=== PATIENT | male | born 1980 | race Caucasian/White ===

== ENCOUNTER 2016-11-27 14:11 | Inpatient (IN) | payer OTHER ==
--- NOTE | 2016-11-27 17:08 | Emergency Department Report ---
ED Extremity Problem HPI - General Chief complaint: Extremity Injury, Lower Stated complaint: THIGH PAIN Time Seen by Provider: 11/27/16 16:40 Source: patient Mode of arrival: Ambulatory Limitations: No Limitations - History of Present Illness Initial comments: Patient comes into the ER today with complaints of right thigh pain and swelling for the past 3 days. Patient denies any injury. 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 Patient states that he has had this before in his left arm and was told that he pulled a muscle. Patient denies any chest pain, shortness of breath or any other known health factors. Upon questioning patient, does state that he has had a blood clot in his left leg 2 years ago and was on Xeralto for such. Patient has not been taken Xeralto for a while. MD Complaint: extremity pain, extremity swelling -: days(s) (3) Location: right, lower extremity - Related Data Allergies Allergy/AdvReac Type Severity Reaction Status Date / Time No Known Allergies Allergy Unverified 11/27/16 14:20 ED Review of Systems ROS: Stated complaint: THIGH PAIN Other details as noted in HPI Constitutional: denies: chills, fever Eyes: denies: eye pain, eye discharge, vision change ENT: denies: ear pain, throat pain Respiratory: denies: cough, orthopnea, shortness of breath, SOB with exertion, SOB at rest, wheezing Cardiovascular: denies: chest pain, palpitations Endocrine: no symptoms reported Gastrointestinal: denies: abdominal pain, nausea, diarrhea Genitourinary: denies: urgency, dysuria, frequency, hematuria, discharge, testicular pain Musculoskeletal: myalgia, other (right thigh pain). denies: back pain, joint swelling, arthralgia Skin: denies: rash, lesions Neurological: denies: headache, weakness, numbness, paresthesias Psychiatric: denies: anxiety, depression Hematological/Lymphatic: denies: easy bleeding, easy bruising ED Past Medical Hx - Past Medical History Previous Medical History?: No - Surgical History Past Surgical History?: No - Social History Smoking Status: Never Smoker Substance Use Type: None ED Physical Exam - General Limitations: No Limitations General appearance: alert, in no apparent distress - Head Head exam: Present: atraumatic, normocephalic - Eye Eye exam: Present: normal appearance - ENT ENT exam: Present: mucous membranes moist - Neck Neck exam: Present: normal inspection, full ROM. Absent: tenderness, lymphadenopathy - Respiratory Respiratory exam: Present: normal lung sounds bilaterally. Absent: respiratory distress, wheezes, rales, rhonchi, decreased breath sounds - Cardiovascular Cardiovascular Exam: Present: regular rate, normal rhythm. Absent: systolic murmur, diastolic murmur, rubs, gallop - GI/Abdominal GI/Abdominal exam: Present: soft, normal bowel sounds. Absent: distended, tenderness, guarding, rebound - Rectal Rectal exam: Present: deferred - Extremities Exam Extremities exam: Present: tenderness (right medial anterior thigh tenderness, pain with occasional varicose vein noted. Right calf tenderness.), normal capillary refill, calf tenderness. Absent: pedal edema - Back Exam Back exam: Present: normal inspection - Neurological Exam Neurological exam: Present: alert, oriented X3, CN II-XII intact, reflexes normal. Absent: motor sensory deficit - Psychiatric Psychiatric exam: Present: normal affect, normal mood - Skin Skin exam: Present: warm, dry, intact, normal color. Absent: rash ED Course Vital Signs 11/27/16 11/27/16 14:18 18:43 Temperature 98.2 F Pulse Rate 90 Respiratory 18 16 Rate Blood Pressure 129/76 O2 Sat by Pulse 98 99 Oximetry ED Medical Decision Making - Lab Data Result diagrams: 11/27/16 18:01 11/27/16 18:01 Lab Results 11/27/16 11/27/16 11/27/16 Range/Units 18:01 18:01 18:01 WBC 5.0 (4.5-11.0) K/mm3 RBC 4.67 (3.65-5.03) M/mm3 Hgb 13.4 (11.8-15.2) gm/dl Hct 40.0 (35.5-45.6) % MCV 86 (84-94) fl MCH 29 (28-32) pg MCHC 34 (32-34) % RDW 13.5 (13.2-15.2) % Plt Count 165 (140-440) K/mm3 Lymph % (Auto) 38.6 H (13.4-35.0) % [place] % (Auto) 8.1 H (0.0-7.3) % Eos % (Auto) 6.6 H (0.0-4.3) % Baso % (Auto) 1.3 (0.0-1.8) % Lymph # 1.9 (1.2-5.4) K/mm3 [place] # 0.4 (0.0-0.8) K/mm3 Eos # 0.3 (0.0-0.4) K/mm3 Baso # 0.1 (0.0-0.1) K/mm3 Seg Neutrophils % 45.4 (40.0-70.0) % Seg Neutrophils # 2.3 (1.8-7.7) K/mm3 PT 14.2 (12.2-14.9) Sec. INR 1.11 (0.87-1.13) APTT 25.7 (24.2-36.6) Sec. Sodium 140 (137-145) mmol/L Potassium 4.0 (3.6-5.0) mmol/L Chloride 101.6 (98-107) mmol/L Carbon Dioxide 26 (22-30) mmol/L Anion Gap 16 mmol/L BUN 16 (9-20) mg/dL Creatinine 1.1 (0.8-1.5) mg/dL Estimated GFR > 60 ml/min BUN/Creatinine Ratio 14.54 % Glucose 105 H (75-100) mg/dL Calcium 9.4 (8.4-10.2) mg/dL Total Bilirubin 0.50 (0.1-1.2) mg/dL AST 21 (5-40) units/L ALT 28 (7-56) units/L Alkaline Phosphatase 88 (35-129) units/L Total Protein 8.3 H (6.3-8.2) g/dL Albumin 4.4 (3.9-5) g/dL Albumin/Globulin Ratio 1.1 % - EKG Data -: EKG Interpreted by Tx EKG shows normal: sinus rhythm Rate: normal - EKG Data Interpretation: no acute changes, normal EKG - Radiology Data Radiology results: report reviewed Chest x-ray report is negative. Verbal report from sterilization tech reveals bilateral lower extremity DVTs. - Medical Decision Making Patient is nontoxic and hemodynamically stable. Based on history and lack of injury, lower extremity venous Doppler ordered in the ER. Verbal interpretation from sterilization tech reveals bilateral lower extremity DVT. Ultrasound results reviewed and discussed with patient room. Based on patient having bilateral lower extremity DVT, recommend patient be admitted to hospital for observation. Additional lab testing ordered as well as EKG and chest x- ray. Discussed case and treatment plan with attending Dr. Kahlil M.D. also consulted hospitalist Dr. Sona MD. for admission. Upon further inquiry of patient's history, patient does state that other family members have had similar problems with blood clots in the past as well. I have suspicion for some underlying blood clotting disorder as to patient's recurrent DVT situation. Critical care attestation.: If time is entered above; I have spent that time in minutes in the direct care of this critically ill patient, excluding procedure time. ED Disposition Clinical Impression: DVT, bilateral lower limbs Disposition: OP ADMITTED IP TO THIS HOSP Is pt being admited?: Yes Does the pt Need Aspirin: No Condition: Stable
--- NOTE | 2016-11-27 18:05 | Admit Criteria Form ---
Admission Criteria Documentation: DEEP VENOUS THROMBOSIS OF LOWER EXTREMITIES Clinical Indications for Admission to Inpatient Care ( Place 'X' for any and all applicable criteria): Admission is indicated for ANY ONE of the following (1)(2)(3)(4): [ ]I. Documented extensive thrombosis (e.g., clot in vena cava or above iliofemoral bifurcation) [ ]II. Limb-threatening thrombosis (e.g., phlegmasia cerulea dolens) [ ]III. Active bleeding [ ]IV. Recent surgery (e.g., within 6 weeks) [ ]V. Active peptic ulcer disease [ ]. Thrombosis while on anticoagulation [ ]VII. [X ]VIII. Appropriate monitoring and therapy cannot be provided in home or outpatient setting [ ]IX. Thrombolysis (e.g., catheter-directed) or pharmaco mechanical thrombectomy needed (3) [ ]X. Vena cava filter placement planned (3) [ ]XI. Severely diminished cardiopulmonary reserve (e.g., pulmonary hypertension) [ ]XII. Severe renal failure (e.g., GFR less than 30 mL/min/1.73m2 (0.5 mL/sec /1.73m2)) [ ]XIII. Known clotting abnormality or deficiency (antithrombin III, protein C , or protein S) [ ]XIV. History of heparin-induced thrombocytopenia [ ]XV . Personal or family history of bleeding tendency or familial bleeding disorder that requires inpatient admission rather than observation care (Also use Deep Venous Thrombosis of Lower Extremities: Observation Care as appropriate) because of ANY ONE of the following: [ ]a) Significant allergic, autoimmune (thrombocytopenia), or coagulopathic reaction occurs in response to anticoagulation [ ]b) Other significant finding or clinical condition judged not to be within the scope of observation care Extended stay beyond goal length of stay may be needed for(1)(19): [ ]a) Hemorrhage or recent surgery(3) [ ]b) Inadequate oral anticoagulation [ ]c) Recurrent thromboembolism(3) [ ]d) Heparin-induced thrombocytopenia(14) The original [facility] content created by [facility] has been revised. The portions of the content which have been revised are identified through the use of italic text or in bold, and [facility] has neither reviewed nor approved the modified material. All other unmodified content is copyright [facility]. Please see references footnoted in the original [facility] edition 2016 Admission Criteria Met: Yes
[2016-11-27 18:09] LABS: Basophils % (Auto) 1.3 % (0.0-1.8); Eosinophils % (Auto) 6.6 % (0.0-4.3); Hemoglobin 13.4 gm/dl (11.8-15.2); Mean Corpuscular HGB Conc 34 % (32-34); Mean Corpuscular Hemoglobin 29 pg (28-32); Mean Corpuscular Volume 86 fl (84-94); Platelet Count 165 K/mm3 (140-440); Red Blood Count 4.67 M/mm3 (3.65-5.03); Red Cell Distribution Width 13.5 % (13.2-15.2)
[2016-11-27] MEDS ORDERED: LOVENOX SUB-Q ONE (18:10)
[2016-11-27] MEDS ORDERED: NACL 0.9% 1000 ML 1,000 ML IV ONE (18:10)
[2016-11-27 18:22] LABS: INR 1.11 (0.87-1.13)
[2016-11-27 18:23] LABS: Partial Thromboplastin Time 25.7 Sec. (24.2-36.6)
[2016-11-27 18:33] LABS: Alanine Aminotransferase 28 units/L (7-56); Albumin 4.4 g/dL (3.9-5); Albumin/Globulin Ratio 1.1 %; Alkaline Phosphatase 88 units/L (35-129); Anion Gap 16 mmol/L; BUN/Creatinine Ratio 14.54; Blood Urea Nitrogen 16 mg/dL (9-20); Calcium 9.4 mg/dL (8.4-10.2); Carbon Dioxide 26 mmol/L (22-30); Chloride 101.6 mmol/L (98-107); Glucose 105 mg/dL (75-100); Sodium 140 mmol/L (137-145); Total Protein 8.3 g/dL (6.3-8.2)
--- NOTE | 2016-11-27 18:41 | XRay Report ---
FINAL REPORT PROCEDURE: XR CHEST 1V AP TECHNIQUE: Chest radiograph anteroposterior view. CPT 48459 HISTORY: Dyspnea COMPARISON: No prior studies are available for comparison. FINDINGS: Heart: Normal. Mediastinum/Vessels: Normal. Lungs/Pleural space: Normal. Bony thorax: No acute osseous abnormality. Life support devices: None. IMPRESSION: No acute cardiopulmonary abnormality.
[2016-11-27] MEDS ORDERED: FLUARIX QUAD 2016-2017(36 MOS+) IM ONE (23:10)
[2016-11-28] MEDS ORDERED: MORPHINE IV PRN (00:54)
[2016-11-28] MEDS ORDERED: PERCOCET 5/325 PO PRN (03:33)
[2016-11-28] MEDS ORDERED: DILAUDID IV PRN (03:33)
[2016-11-28] MEDS ORDERED: ZOFRAN IV PRN (03:33)
[2016-11-28] MEDS ORDERED: TYLENOL PO PRN (03:33)
[2016-11-28] MEDS ORDERED: DULCOLAX PR PRN (03:33)
[2016-11-28] MEDS ORDERED: MILK OF MAGNESIA PO PRN (03:33)
--- NOTE | 2016-11-28 03:36 | Event Note ---
Date: 11/27/16 See H/p in reports Sukhjinder DVT Lovenox +Xarelto ordered Patient wants to be on Xarelto and not coumdin b/c of convenience R/o Hypercoagulable state
[2016-11-28] MEDS: LOVENOX SUB-Q SCH ×2 (06:39→16:19)
--- NOTE | 2016-11-28 07:13 | History and Physical Report ---
CHIEF COMPLAINT: Right thigh pain and swelling for 3 days. HISTORY OF PRESENT ILLNESS: A 36-year-old male comes in to the ER for right lower extremity swelling for the last 3 days. There is significant difference in size from the right upper thigh and left upper thigh. There is no shortness of breath. 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 The patient had a similar problem of DVT 2 years ago and 6 years ago. It is the third episode. He had a blood clot in the left leg 2 years ago. Not taking any medications. Taken some [id number]-lfw-cquzkmb medications. PAST MEDICAL HISTORY: Significant for recurrent DVT. This is a third episode. PAST SURGICAL HISTORY: None. SOCIAL HISTORY: Does not smoke. No alcohol, no recreational drugs. FAMILY HISTORY: Hypertension present. REVIEW OF SYSTEMS: Significant for right lower extremity swelling and pain, which is about 6 on a scale of 1-10. No shortness of breath. A 14-point review of systems was done. Otherwise, negative. PHYSICAL EXAMINATION: GENERAL: Young male, cooperative during examination. VITAL SIGNS: Temperature 98.2, pulse 90, respirations 18, blood pressure 129/76, sats are 98%. HEENT: Unremarkable. Pupils equal and reactive. NECK: Supple, no lymphadenopathy, no thyromegaly. LUNGS: Clear to auscultation and percussion. Good air entry. CARDIOVASCULAR: S1, S2 heard. No gallop, no murmur, no rub. Apical impulse in left fifth intercostal space and midclavicular line. ABDOMEN: Soft and benign. No hepatosplenomegaly. No guarding, no rigidity. Hernial orifices are normal. EXTREMITIES: Good pedal pulses. No pedal edema. Right lower extremity is swollen, mid thigh is 3 cm more than the left mid thigh. Right upper thigh is hard to touch. SKIN: Normal. LABORATORY DATA: Essentially normal. Glucose is 105 and total protein is 8.3. IMAGING: The patient has had ultrasound of both the lower extremities, which shows bilateral DVT. Acute DVT noted in bilateral common femoral vein and the superficial femoral vein and popliteal veins. also noted in right brachiocephalic vein. ASSESSMENT AND PLAN: Bilateral deep venous thrombosis, more so in the right lower extremity. The patient started on Lovenox 100 mg q.12h and Xarelto 20 mg once a day. The patient wants to be on Xarelto and not Coumadin because of the convenience. The patient does not want blood test every month. We will discuss with the incoming hospitalist group about the Coumadin versus Xarelto. Also, the patient may be switched to heparin because of the cross reaction of Lovenox with Xarelto, but it was recurrent hypercoagulable state. We will check for protein C, protein S, homocystine levels as basic workup for hypercoagulable state. Deep venous thrombosis prophylaxis. The patient is already on Lovenox 100 mg q.12h. JOB# [id number] JOSE D/SUGAR
--- NOTE | 2016-11-28 08:34 | Progress Note ---
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 Patient most likely will be on anticoagulation indefinitely. He's asking for Flexeril for muscle spasms of the right leg. -History of DVT -Disposition: Depending on Hemo/onc evaluation; patient may be discharged tomorrow on a novel anticoagulation Hypercoagulable panel was ordered and needs follow-up with hematology oncology History Interval history: Patient seen and examined. Follow up on right leg and thigh pains which is still present. Overnight uneventful. No cp, sob, n/v or severe headaches. Imaging, old records, testing, labs, nursing notes reviewed. Hospitalist Physical - Physical exam Narrative exam: GEN: WDWN, NAD, AWAKE, ALERT, ORIENTATED x 3 HEENT: NCAT, PERRL, EOMI, OP CLEAR NECK: SUPPLE, NO THYROMEGALY, NO JVD, NO LAD CVS: RRR, NORMAL S1S2 LUNGS/CHEST: CTA B, NORMAL CHEST EXPANSION B, GOOD AIR ENTRY B ABD: SOFT, NTND, GBS, NO REBOUND OR GUARDING EXT/SKIN: Right leg is slightly bigger than left MSK: FROM X 4 EXTREMITIES NEURO: CN 2-12 GROSSLY INTACT, NO FOCAL DEFICITS PSY: CALM - Constitutional Vitals: Temp Pulse Resp BP Pulse Ox 98.2 F 72 20 132/86 99 11/28/16 07:00 11/28/16 07:00 11/28/16 07:00 11/28/16 07:00 11/28/16 07:00 Results - Labs CBC & Chem 7: 11/27/16 18:01 11/27/16 18:01 Labs: Laboratory Last Values WBC 5.0 K/mm3 (4.5-11.0) 11/27/16 18:01 RBC 4.67 M/mm3 (3.65-5.03) 11/27/16 18:01 Hgb 13.4 gm/dl (11.8-15.2) 11/27/16 18:01 Hct 40.0 % (35.5-45.6) 11/27/16 18:01 MCV 86 fl (84-94) 11/27/16 18:01 MCH 29 pg (28-32) 11/27/16 18:01 MCHC 34 % (32-34) 11/27/16 18:01 RDW 13.5 % (13.2-15.2) 11/27/16 18:01 Plt Count 165 K/mm3 (140-440) 11/27/16 18:01 Lymph % (Auto) 38.6 % (13.4-35.0) H 11/27/16 18:01 [place] % (Auto) 8.1 % (0.0-7.3) H 11/27/16 18:01 Eos % (Auto) 6.6 % (0.0-4.3) H 11/27/16 18:01 Baso % (Auto) 1.3 % (0.0-1.8) 11/27/16 18:01 Lymph # 1.9 K/mm3 (1.2-5.4) 11/27/16 18:01 [place] # 0.4 K/mm3 (0.0-0.8) 11/27/16 18:01 Eos # 0.3 K/mm3 (0.0-0.4) 11/27/16 18:01 Baso # 0.1 K/mm3 (0.0-0.1) 11/27/16 18:01 Seg Neutrophils % 45.4 % (40.0-70.0) 11/27/16 18:01 Seg Neutrophils # 2.3 K/mm3 (1.8-7.7) 11/27/16 18:01 PT 14.2 Sec. (12.2-14.9) 11/27/16 18:01 INR 1.11 (0.87-1.13) 11/27/16 18:01 APTT 25.7 Sec. (24.2-36.6) 11/27/16 18:01 Sodium 140 mmol/L (137-145) 11/27/16 18:01 Potassium 4.0 mmol/L (3.6-5.0) 11/27/16 18:01 Chloride 101.6 mmol/L (98-107) 11/27/16 18:01 Carbon Dioxide 26 mmol/L (22-30) 11/27/16 18:01 Anion Gap 16 mmol/L 11/27/16 18:01 BUN 16 mg/dL (9-20) 11/27/16 18:01 Creatinine 1.1 mg/dL (0.8-1.5) 11/27/16 18:01 Estimated GFR > 60 ml/min 11/27/16 18:01 BUN/Creatinine Ratio 14.54 % 11/27/16 18:01 Glucose 105 mg/dL (75-100) H 11/27/16 18:01 Calcium 9.4 mg/dL (8.4-10.2) 11/27/16 18:01 Total Bilirubin 0.50 mg/dL (0.1-1.2) 11/27/16 18:01 AST 21 units/L (5-40) 11/27/16 18:01 ALT 28 units/L (7-56) 11/27/16 18:01 Alkaline Phosphatase 88 units/L (35-129) 11/27/16 18:01 Total Protein 8.3 g/dL (6.3-8.2) H 11/27/16 18:01 Albumin 4.4 g/dL (3.9-5) 11/27/16 18:01 Albumin/Globulin Ratio 1.1 % 11/27/16 18:01
[2016-11-28] MEDS: FLEXERIL PO PRN ×2 (09:56→17:12)
[2016-11-28] MEDS ORDERED: XARELTO PO SCH (10:00)
[2016-11-28] MEDS ORDERED: FLUARIX QUAD 2016-2017(36 MOS+) IM ONE (12:00)
--- NOTE | 2016-11-28 16:36 | Hem/Onc Progress Note ---
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 He reports a hx of multiple DVT's being treated with both Coumadin and Xarelto in the past. States he has not been on any anticoagulation recently, last time one year ago. Confused regarding details of previous diagnosis and treatment. He thinks the blood clot is due to prolonged driving for his job. Does not smoke. Reports a history of blood clots in his father. Information obtained over the phone. States he prefers Coumadin to Xarelto due to prior bleeding on Xarelto. - agree with current lovenox, will likely need indefinite anticoagulation - agree with hypercoagulable w/u - full evaluation to follow tomorrow morning - will need follow up in hematology clinic Subjective Date of service: 11/28/16 Interval history: . Objective - Constitutional Vitals: Last Vital Signs Temp 98.2 F 11/28/16 07:00 Pulse 72 11/28/16 07:00 Resp 20 11/28/16 07:00 BP 132/86 11/28/16 07:00 Pulse Ox 99 11/28/16 07:00
[2016-11-28] MEDS ORDERED: COUMADIN PO SCH (17:00)
[2016-11-29] MEDS: LOVENOX SUB-Q SCH (04:32)
[2016-11-29] MEDS: FLEXERIL PO PRN (05:22)
--- NOTE | 2016-11-29 07:24 | Discharge Summary ---
Providers - Providers Date of Admission: 11/27/16 18:15 Date of discharge: 11/29/16 Attending physician: SHORTY TARANGO MD 11/28/16 06:46 Consult to Physician [CONS] Routine Consulting Provider: TIGIST BAER Reason For Exam: Why 36 yo with leg DVTs? treatment? Place consult to:: Michelle LOCKHART Notified:: [employer] Phone number called:: [phone] Was contact made?: Yes Time called:: 08:10 Comment:: CONSULT COMPLETED - CHAITANYA Primary care physician: HEMATOLOGIST Hospitalization Reason for admission: right knee pain Condition: Stable Hospital course: Patient is a 36-year-old male who works with hx of 2 vessels of left sided DVTs , presents to the hospital complaining of right leg pain and was diagnosed with extensive bilateral DVT. The patient was started on Lanoxin with warfarin. Initially the patient had stated that he was on Xarelto but on further evaluation and discussion he had actually used Xarelto in the past but it was discontinued due to gum bleeding. This was years ago. He was in by hematology oncology and left thigh specimen discussion the patient wants to return to uses her altered. He understands that he most likely will be on confabulation indefinitely and is to follow up with a home economics expert office for hyperbilirubinemia workup. We did discuss side effects associated with the medication and also anticoagulants including bleeding. He is also Flexeril when necessary. He also understands not to drive while on this medication. This has been discussed in detail the patient is clinically stable at this point for discharge. Discharge diagnosis * Bilateral DVT * Secondary coagulopathy * Muscle spasm Disposition: DISCHARGED TO HOME OR SELFCARE Time spent for discharge: 35 mins Core Measure Documentation - Palliative Care Palliative Care/ Comfort Measures: Not Applicable - Core Measures Any of the following diagnoses?: DVT/PE - VTE Discharge Requirements Deep Vein Thrombosis/Pulmonary Embolism Present on Admission: Yes Has pt received <5 days of overlap therapy or INR<2.0: Yes (criteria for overlap therapy at discharge: on overlap therapy for less than 5 days or INR<2.0 ) Anticoagulant overlap therapy prescribed at discharge: Yes Exam - Physical Exam Narrative exam: VITAL SIGNS: Reviewed. GENERAL: The patient appeared well nourished and normally developed. Vital signs as documented. HEAD: No signs of head trauma. EYES: Pupils are equal. Extraocular motions intact. EARS: Hearing grossly intact. MOUTH: Oropharynx is normal. NECK: No adenopathy, no JVD. CHEST: Chest with clear breath sounds bilaterally. No wheezes, rales, or rhonchi. CARDIAC: Regular rate and rhythm. S1 and S2, without murmurs, gallops, or rubs. VASCULAR: No Edema. Peripheral pulses normal and equal in all extremities. ABDOMEN: Soft, without detectable tenderness. No sign of distention. No rebound or guarding, and no masses palpated. Bowel Sounds normal. MUSCULOSKELETAL: Good range of motion of all major joints. Extremities without clubbing, cyanosis or edema. NEUROLOGIC EXAM: Alert and oriented x 3. No focal sensory or strength deficits. Speech normal. Follows commands. PSYCHIATRIC: Mood normal. SKIN: No rash or lesions. - Constitutional Vitals: Temp Pulse Resp BP Pulse Ox 97.9 F 70 16 122/83 97 11/29/16 07:22 11/29/16 07:22 11/29/16 07:22 11/29/16 07:22 11/29/16 07:22 Plan Activity: no restrictions, fall precautions Diet: regular Additional Instructions: MUST MONITOR INR at PCP or Production Officer office in 3 days. Follow up with: PRIMARY CARE, [Primary Care Provider] - 3-5 Days TIGIST BAER MD [Staff Physician] - 7 Days Prescriptions: Cyclobenzaprine [Flexeril 10 MG TAB] 10 mg PO Q12HR PRN #14 tablet PRN Reason: Muscle Spasm oxyCODONE /ACETAMINOPHEN [Percocet 5/325 mg] 1 tab PO Q6H PRN #20 tablet PRN Reason: Pain, Moderate (4-6) Rivaroxaban [Xarelto] 15 mg PO BID 21 Days
--- NOTE | 2016-11-29 10:11 | Hem/Onc Consultation ---
History of Present Illness - Reason for Consult Consult date: 11/29/16 DVT Requesting physician: SHORTY TARANGO - History of Present Illness Mr Addison is a 36 yom with a history of prior DVT who presents with R leg pain x 1 week. He thought it was due to a pulled muscle in his leg. Endorses some swelling also in that leg. Denies chest pain or sob. An US was performed showing extensive bilateral DVT per notes (official radiology report still pending). Pt states he has had 2 prior DVT's, the first in 2010, and the second ~2012. He recalls being treated with Xarelto and Coumadin (does not remember which drug for which clot), each time for 6 months to 2 years. 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 Denies smoking. Cannot remember where he followed for his previous clots in terms of medical care. There was some confusion regarding whether he was actually taking Xarelto at the time of this clot but he assures me it has been over a year since he has taken any anticoagulation. Has been started on Lovenox/Coumadin. Still with some pain upper R thigh. Reports prior gum bleeding on Xarelto. Father has a history of blood clots also. Past History Past Medical History: DVT Past Surgical History: No surgical history Social history: denies: smoking, alcohol abuse Family history: other (father- "blood clots") Medications and Allergies Allergies Allergy/AdvReac Type Severity Reaction Status Date / Time No Known Allergies Allergy Unverified 11/27/16 14:20 Home Medications Medication Instructions Recorded Confirmed Last Taken Type Cyclobenzaprine [Flexeril 10 MG 10 mg PO Q12HR PRN #14 tablet 11/29/16 Unknown Rx TAB] Rivaroxaban [Xarelto] 15 mg PO BID 21 Days 11/29/16 Unknown Rx oxyCODONE /ACETAMINOPHEN [Percocet 1 tab PO Q6H PRN #20 tablet 11/29/16 Unknown Rx 5/325 mg] Active Meds: Active Medications Acetaminophen (Tylenol) 650 mg PO Q4H PRN PRN Reason: Pain MILD(1-3)/Fever >100.5/BIRCH Bisacodyl (Dulcolax) 10 mg FL QDAY PRN PRN Reason: Constipation unrelieved by MOM Cyclobenzaprine HCl (Flexeril) 10 mg PO Q8H PRN PRN Reason: Muscle Spasm Last Admin: 11/29/16 05:22 Dose: 10 mg Enoxaparin Sodium (Lovenox) 80 mg SUB-Q Q12H [facility] Last Admin: 11/29/16 04:32 Dose: 80 mg Hydromorphone HCl (Dilaudid) 1 mg IV Q3H PRN PRN Reason: Pain , Severe (7-10) Magnesium Hydroxide (Milk Of Magnesia) 30 ml PO Q4H PRN PRN Reason: Constipation Morphine Sulfate (Morphine) 2 mg IV Q4H PRN PRN Reason: Pain, Moderate (4-6) Last Admin: 11/28/16 02:43 Dose: 2 mg Ondansetron HCl (Zofran) 4 mg IV Q8H PRN PRN Reason: N/V unrelieved by Reglan Oxycodone/Acetaminophen (Percocet 5/325) 1 tab PO Q6H PRN PRN Reason: Pain, Moderate (4-6) Last Admin: 11/29/16 05:21 Dose: 1 tab Warfarin Sodium (Coumadin Pharmacy To Dose) 1 each PO PKCONSULT [facility] PRN Reason: Protocol Warfarin Sodium (Coumadin) 7.5 mg PO DAILY@1700 [facility] Last Admin: 11/28/16 17:12 Dose: 7.5 mg Review of Systems Constitutional: fatigue Ears, nose, mouth and throat: bleeding gums, other (bleeding gums in the past) Cardiovascular: no chest pain Respiratory: no cough Gastrointestinal: no abdominal pain, no BRBPR Genitourinary Male: no hematuria Musculoskeletal: other (R leg pain) Integumentary: no redness Neurological: no headaches Hematologic/Lymphatic: other (blood clots) Exam - Constitutional Vitals: Last Vital Signs Temp 97.9 F 11/29/16 07:22 Pulse 70 11/29/16 07:22 Resp 16 11/29/16 07:22 BP 122/83 11/29/16 07:22 Pulse Ox 97 11/29/16 07:22 General appearance: no acute distress - Neck Neck: supple - Respiratory Respiratory effort: Positive: normal Respiratory: bilateral: CTA - Cardiovascular Rhythm: regular Extremities: No edema, normal color - Gastrointestinal General gastrointestinal: Present: soft - Integumentary Integumentary: warm, dry - Neurologic Neurologic: moves all extremities Results - Imaging and cardiology Venous US: pending, other (bilateral extensive DVT per verbal report) Assessment and Plan - Patient Problems (1) DVT, bilateral lower limbs Current Visit: Yes Status: Acute Qualifiers: Affected thrombotic vein of extremity: A Chronicity: C Plan to address problem: After further discussion this morning, Mr Addison prefers to take Xarelto rather than Coumadin due to convenience. I think this is reasonable as he was not on anticoagulation when this occurred. He will likely need indefinite anticoagulation, especially if he continues to drive. Instructed him that if he must spend prolonged time sitting to get up and stretch often. Will need to follow up in clinic for results of hypercoagulable workup with Jaswinder Martinez. Instructed to take Xarelto with food if possible.
[2016-11-29 12:05] VITALS: BP 139/90
--- NOTE | 2016-11-30 07:47 | Vascular Lab Report ---
LOWER EXTREMITY VENOUS DUPLEX: REASON FOR EXAM: Pain and swelling of the lower extremities. COMMENTS ON THE RIGHT: Acute deep venous thrombosis is noted of the popliteal, femoral, common femoral, deep femoral veins. Superficial venous thrombosis noted in the greater saphenous vein. The remaining veins visualized are freely compressible without evidence of internal echogenicity. Spontaneous and phasic flow is absent proximally. COMMENTS ON THE LEFT: Acute deep venous thrombosis is noted in the popliteal, femoral common femoral and deep femoral veins. Superficial thrombosis is noted in the greater saphenous vein.. The remaining veins visualized are freely compressible without evidence of internal echogenicity. Spontaneous and phasic flow is absent proximally. IMPRESSION: Bilateral extensive deep and superficial venous thrombosis
== END 2016-11-29 11:50 | disposition home or self-care (01) | DRG 300 ==
LOC: ED 14:11 → 3A 18:15
PROVIDERS: ADMIT Internal Medicine; ATTEND Internal Medicine
DX: I82.403 Acute embolism and thrombosis of unspecified deep veins of lower extremity, bilateral (principal); D68.8 Other specified coagulation defects; D68.59 Other primary thrombophilia; E80.6 Other disorders of bilirubin metabolism; M62.838 Other muscle spasm; Z82.49 Family history of ischemic heart disease and other diseases of the circulatory system
CPT/HCPCS: 36415; 71010; 80053; 83516; 85025; 85301; 85305; 85307; 85610; 85613; 85730; 86147; 90686; 93005; 93010; 93970; 96360; 96372; J1650; J2270; J7030